=== PATIENT | female | born 1930 | race Caucasian/White ===

== ENCOUNTER 2016-10-09 16:17 | Emergency (ER) | payer MEDICARE, OTHER ==
[~2016-10-09] VITALS: Ht 160 cm; Wt 90.7 kg
[~2016-10-09 16:17] MED LIST: AFRIN 20 ML20 M1 NS; ASPIRIN ADULT L81 M2 PO; ATIVAN0.5 MG PO; CENTRUM1 TAB PO; FERROUS SULFAT325 M2 PO; FLAGYL500 M1 PO; HYDROCODONE-APA1 TA1 PO; LEVOXYL0.025 MG PO; LEVOXYL0.125 MG PO; LORATADINE 10MG10 M1 PO; LOSARTAN POTASS50 MG PO; MOBIC15 MG PO; MOTRIN600 M1 PO; OSTEO BI-FLEX1 TAB PO; OXYBUTYNIN5 MG PO; PANTOPRAZOLE SO40 MG PO; PRILOSEC20 MG PO; TOVIAZ8 MG PO; TRIAMTERENE AND1 TAB PO; TROSPIUM CHLORI20 MG PO; VESICARE5 MG PO
[2016-10-09] MEDS ORDERED: ZITHROMAX Z PA250 MG PO (17:28)
[2016-10-09] MEDS ORDERED: FLONASE 50 MCG16 GM (17:28)
[2016-10-09] MEDS ORDERED: MEDROL 4MG. DOSE4 MG PO (17:28)
--- NOTE | 2016-10-09 17:28 | Urgent Treatment Center Report ---
History of Present Issue Date/Time Seen by Provider 10/09/16 1630 Visit Reason Pt arrived:Wheelchair Presenting Problem:PT STATES SHE BEGAN TO HAVE COLD SYMPTOMS ON TUESDAY AFTERNOON. STATES CONGESTION, RUNNY NOSE, COUGH AND SINUS PRESSURE. STATES COUGH IS NONPRODUCTIVE Location if Accident: Onset of symptoms date/time:/ or onset unknown for:MEDICAL HX UNKNOWN Have you (or family members/close friends) recently traveled outside the [place]? N If Yes, where/when: Have you had exposure to infectious disease within the past month? TB? Other? Specify: Patient states that she has been not feeling well for about 4-5 days state sthat she has continued to get worse. States that she has had congestion, cough, runny nose and sinus pain and congestion states that she is a little sore under her eyes too. States that the cought is aggrivating and got worse today. Denies coughing anything up just feels like something is dripping in there and aggrivating her ALLERGIES Coded Allergies: bacitracin (I-RASH 05/17/16) neomycin (I-RASH 05/17/16) polymyxin B (I-RASH 05/17/16) solifenacin (FACE SWELLING, SOB, LEG PAIN 05/17/16) venlafaxine (UPSET STOMACH 05/17/16) Home Medications Reported Medications Loratadine (Loratadine 10MG Tablet) 10 MG PO BID TRIAMTERENE/HYDROCHLOROTHIAZID (Triamterene-Hctz 75-50 MG Tab) 1 TAB PO DAILY Losartan Potassium (Losartan 50MG) 50 MG PO DAILY Levothyroxine Sodium (Levoxyl) 0.125 MG PO DAILY Lorazepam (Ativan 0.5MG) 0.5 MG PO TID Trospium Chloride 20 MG PO BID Pantoprazole Sodium (Pantoprazole 40MG) 40 MG PO BID Ibuprofen (Motrin) 600 MG PO PRN PRN . History Medical History General CAD? No Angina: No [place]: No Hypertension? Yes Hyperlipidemia? Yes CHF? No DVT? No PE? No COPD? Yes Asthma? No Anemia? Yes GERD? Yes Gastric ulcers? No GI Bleed? No Hernia? No Thyroid Problems? Yes CVA? No Seizures? No Diabetes? No Insulin Dependent: No Insulin Pump: No Home FSBS? No Renal Insuffiency? No UTI? No Stones? No GB Disease: Yes Nephritic Syndrome? No Asplenia? No Hepatitis? No Sickle Cell Disease? No Arthritis? Yes Migraines? No Cataracts? Yes Glaucoma? No MRSA? No HIV? No TB? No Anxiety? Yes Depression? 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 Yes Additional hx: OSTEOARTHRITIS Immunization HX DT/Tetanus Unknown Flu 2011-FSN Pneumonia 1-4 YRS Surgical Hx Previous Surgery?Y THYROIDECTOMY GALLBLADDER RIZWAN CATARACT REMOVAL HYSTERECTOMY Family History Family HX Diabetes Yes CAD Yes Hypertension No Hyperlipidemia Yes Cancer No TB No Social History Smoking Hx Smoker: Never Smoker Tobacco: No Alcohol Alcohol: No Review of Systems All Other Systems Reviewed and Negative ENT nose discharge, nose congestion, throat pain. Respiratory cough Comment Coughing, sinus pain and pressure, ears feel full and over all not feeling well for the last 4-5 days. Physical Exam Vital Signs Vital Signs Date Time Temp Pulse Resp B/P Pulse O2 O2 Flow FiO2 Ox Delivery Rate 10/09 1637 97.5 93 22 148/85 97 General Appearance Over all patient appears ill, sitting in wheelchair coughing and blowing nose with greenish colored mucous Ear, Nose, Throat sinus pain/drainage, nasal congestion, Greenish colored mucous from nose. Tenderness over maxillary sinus, throat red, irritated Respiratory Status Yes: trachea midline, chest symmetrical. No: respiratory distress. Lung Sounds bilateral: lungs clear. 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 Right ear stopped up with wax, ear cleaned out with ear cruette patient tolerated well Medical Decision Making LABS/Meds/Orders Pt receiving controlled substance in ED? No Results/Orders Orders Procedure Date/time Status CHEST(2 VIEWS-NOT PORTABLE) 10/09 1644 Active XRAY/CT/US XRAY/CT/US XRAY chest XR interpretation by reviewed by me Xray Results no infiltrates, large hiatel hernia Progress IAC Progress Notes Date 10/09/16 Departure Departure Time of Disposition 1725 Disposition DC Home or Self Care(routine) Clinical Impression Primary Impression: Upper respiratory infection Qualifiers: URI type: unspecified URI Qualified Code: J06.9 - Acute upper respiratory infection, unspecified Condition STABLE Referrals Raimundo Velasco MD (Family) Patient Instructions Cough, DI for Sinusitis, Sinus Headache Additional Instructions *Follow up with family doctor * Monitor Temp. Tylenol and/or Ibuprofen as needed. ER if fever is no less than 101 despite alternating Tylenol and Ibuprofen * Encourage fluids, water, Gatorade, powerade, pedialyte if infant/toddler/or child * Warm salt water gargles for throat irritation *Warm fluids *Sore throat lozenges *Sleep elevated *humidifier or vaporizer Discharge Counseling Counseled pt/family regarding diagnosis, test results, medications/RX, home care, follow up needs Prescriptions Current Visit Scripts Azithromycin (Zithromycin (Z-COOPER) 250MG Tab) 250 MG PO DAILY #6 TAB TAKE TWO (2) TABLETS ON DAY 1, THEN ONE (1) TABLET DAY #2 THRU #5 Fluticasone Propionate (Flonase 50 Mcg Nasal [place]) 2 SPRAY NA DAILY #1 BOT Methylprednisolone (Medrol Dose [place]) 4 MG PO UD #1 COOPER TAKE DIRECTED ON PACKAGING at 9582
[2016-10-09 17:36] VITALS: BP 148/85
--- NOTE | 2016-10-09 18:18 | RADIOLOGY REPORT PS360 ---
CHEST(2 VIEWS-NOT PORTABLE) Ordering Physician: JEMAL DILLON APRN Patient Age: 86 years: Female HISTORY: COUGH/CONGESTION TECHNIQUE: Cough congestion. PA and lateral chest. FINDINGS Previous portable chest from July 2015. Also AP and lateral chest . Also CT abdomen May 17, 2016. Prominent hiatal hernia with extends into the lower left chest. It appears similar about more prominent than on May 2016. Elevation left hemidiaphragm. There is atelectasis adjacent to this large hiatal hernia and changes at the left base. These features appear similar to the CT abdomen from May 2016. The left upper lung is clear. The right lung appears similar and clear. Some mild vascular engorgement but no overt CHF. Heart upper normal in size julius and mediastinal structures similar with calcified hilar nodes of the left. The chest is rotated to the left on the frontal projection. And T-spine demonstrates mild dextroscoliosis but no compression fractures or prominent findings. Edematous changes noted T-spine. IMPRESSION: No pneumonia nor discrete acute findings either chest. Large hiatal hernia extending into the left lower hemithorax. This was seen on May 2016 but is more pronounced today with further distention here at lower left chest... There is associated atelectasis at the posterior left lung base Right chest stable.
--- OUTSIDE RECORDS SUMMARY | 2016-10-10 23:50 | External Medical Summary Rpt ---
Author Author , Organization [employer] Address Unknown Phone Unavailable Purpose Continuity of Care Document - through 2016
--- OUTSIDE RECORDS SUMMARY | 2016-10-10 23:50 | External Medical Summary Rpt ---
Author Author [employer] Organization [employer] Address Unknown Phone Unavailable Purpose Continuity of Care Document - through 2016
--- OUTSIDE RECORDS SUMMARY | 2016-10-10 23:50 | External Medical Summary Rpt ---
Demographics Preferred Language Divehi Marital Status Unknown Nondenominational Affiliation Unknown Race Unknown Ethnic Group Unknown Author Author , Organization [employer] Address Unknown Phone Unavailable Purpose Continuity of Care Document - through 2016 Immunization No patient found.
--- OUTSIDE RECORDS SUMMARY | 2016-10-10 23:50 | External Medical Summary Rpt ---
Author Author [facility] Organization [facility] Address Unknown Phone Unavailable Care Team Providers Care Head Of Insight Name Role Phone Franck CHARLES PCP [phone] Encounter [facility] [id number] Date(s): 05/26/16 - 05/26/16 [facility] [address] [place] [id number]- [phone] Discharge Diagnosis: Abdominal pain Discharge Diagnosis: Hematuria Discharge Diagnosis: Diaphragmatic hernia Discharge Disposition: OP Self Care or Home Attending Physician: NATHAN BARAHONA DO Admitting Physician: NATHAN BARAHONA DO Referring Physician: NATHAN BARAHONA DO Reason for Visit DIAPHRAGMATIC HERNIA WITHOUT OBSTRUCTION OR GANGRENE Vital Signs Most recent 1 2 3 to oldest [Reference Range]: Temperature Oral (05/26/16 Source 9:47 AM) Temperature Fahrenheit Fahrenheit Mode (05/26/16 3:04 (05/26/16 9:47 PM) AM) Temperature, 97.2 Deg F Fahrenheit (05/26/16 9:47 [96.8-99.7 AM) Deg F] Clinical 36.2 Deg C Temperature, (05/26/16 9:47 C AM) Peripheral 100 bpm (05/26/16 99 bpm (05/26/16 Pulse Rate 3:04 PM) 9:47 AM) [60-100 bpm] Heart Rate 96 bpm (05/26/16 98 bpm (05/26/16 94 bpm (05/26/16 Monitored 2:30 PM) 2:00 PM) 1:30 PM) [60-100 bpm] Respiratory 18 Breaths/Min 17 Breaths/Min 18 Breaths/Min Rate [14-20 (05/26/16 3:04 (05/26/16 2:30 (05/26/16 2:00 Breaths/Min] PM) PM) PM) Blood 143/82 mmHg 166/79 mmHg 159/89 mmHg Pressure *HI*(12/14/16 *HI*(05/26/16 *HI*(05/26/16 [90-140/60-9 3:04 PM) 2:00 PM) 1:30 PM) 0 mmHg] Mean 114 (05/26/16 112 (05/26/16 105 (05/26/16 Arterial 2:00 PM) 1:30 PM) 12:00 PM) Pressure (MAP)-BMDI Oxygen 93 % 94 % (05/26/16 Saturation *LOW*(05/26/16 9:47 AM) [94-100 %] 3:04 PM) Oxygen Room air Room air Therapy Mode (05/26/16 3:04 (05/26/16 9:47 PM) AM) Problem List No data available for this section Allergies, Adverse Reactions, Alerts Substance Reaction Severity Status bacitracin Active neomycin Active polymyxin B Active sulfate solifenacin Active Medications No data available for this section Results GENERAL CHEMISTRY Most recent 1 to oldest [Reference Range]: Sodium Level 130 mmol/L [136-146 *LOW* mmol/L] (05/26/16 10:10 AM) Potassium 4.3 mmol/L Level (05/26/16 10:10 AM) [3.5-5.1 mmol/L] Chloride 98 mmol/L Level *LOW* [102-112 (05/26/16 10:10 AM) mmol/L] Carbon 19 mmol/L Dioxide *LOW* Level [21-32 (05/26/16 10:10 AM) mmol/L] Anion Gap 17 [9-20] (05/26/16 10:10 AM) Glucose 118 mg/dL Level *HI* [74-106 (05/26/16 10:10 AM) mg/dL] Blood Urea 23 mg/dL Nitrogen *HI* [7-22 mg/dL] (05/26/16 10:10 AM) Creatinine 1.30 mg/dL Level *HI* [0.55-1.02 (05/26/16 10:10 AM) mg/dL] eGFR 47 mL/min/1.73m2 [>=60 *LOW* mL/min/1.73m (05/26/16 10:10 AM) 2] eGFR 39 mL/min/1.73m2 NonAfrican *LOW* [>=60 (05/26/16 10:10 AM) mL/min/1.73m 2] Bun/Creatini 17.7 ne (05/26/16 10:10 AM) [8.0-20.0] Calcium 9.1 mg/dL Level (05/26/16 10:10 AM) [8.5-10.1 mg/dL] Protein 7.6 Gram/dL Total (05/26/16 10:51 AM) [6.4-8.2 Gram/dL] Albumin 3.5 Gram/dL Level (05/26/16 10:51 AM) [3.4-5.0 Gram/dL] Globulin 4.1 Gram/dL [1.5-4.5 (05/26/16 10:51 AM) Gram/dL] A/G Ratio 0.9 [1.1-2.5] *LOW* (05/26/16 10:51 AM) Bilirubin 0.3 mg/dL Total (05/26/16 10:51 AM) [0.2-1.0 mg/dL] Bilirubin <0.1 mg/dL Direct (05/26/16 10:51 AM) [0.0-0.2 mg/dL] Alk Phos 72 Units/Liter [27-136 (05/26/16 10:51 AM) Units/Liter] AST [5-37 26 Units/Liter Units/Liter] (05/26/16 10:51 AM) ALT [12-78 35 Units/Liter Units/Liter] (05/26/16 10:51 AM) Lactic Acid 1.11 mmol/L POC (05/26/16 12:51 PM) [0.90-1.70 mmol/L] Lipase Level 96 Units/Liter [73-393 (05/26/16 10:51 AM) Units/Liter] HEMATOLOGY Most recent 1 to oldest [Reference Range]: WBC 7.1 K/uL [4.0-10.0 (05/26/16 10:10 AM) K/uL] RBC 3.57 Million/uL [3.93-5.22 *LOW* Million/uL] (05/26/16 10:10 AM) Hgb 11.4 g/dL [11.2-15.7 (05/26/16 10:10 AM) g/dL] Hct 33.9 % [34.1-44.9 *LOW* %] (05/26/16 10:10 AM) MCV 95.0 fL [79.0-94.8 *HI* fL] (05/26/16 10:10 AM) MCH 31.9 pg [25.6-32.2 (05/26/16 10:10 AM) pg] MCHC 33.6 Gram/dL [32.2-36.5 (05/26/16 10:10 AM) Gram/dL] Platelet 450 K/uL Count *HI* [163-369 (05/26/16 10:10 AM) K/uL] MPV 8.8 fL [9.4-12.4 *LOW* fL] (05/26/16 10:10 AM) RDW 13.4 % [11.6-14.4 (05/26/16 10:10 AM) %] Neut % 70.5 % [34.0-71.0 (05/26/16 10:10 AM) %] Neut # 4.98 K/uL [1.56-6.13 (05/26/16 10:10 AM) K/uL] Lymph % 17.4 % [19.3-53.1 *LOW* %] (05/26/16 10:10 AM) Lymph # 1.23 x10(3)/uL [1.00-3.90 (05/26/16 10:10 AM) x10(3)/uL] [place] % 9.3 % [3.0-9.0 %] *HI* (05/26/16 10:10 AM) [place] # 0.66 K/uL [0.16-1.00 (05/26/16 10:10 AM) K/uL] Eos % 1.1 % [0.0-7.0 %] (05/26/16 10:10 AM) Eos # 0.08 x10(3)/uL [0.00-0.80 (05/26/16 10:10 AM) x10(3)/uL] Baso % 0.7 % [0.0-1.5 %] (05/26/16 10:10 AM) Baso # 0.05 x10(3)/uL [0.00-0.20 (05/26/16 10:10 AM) x10(3)/uL] Slide Review No (05/26/16 10:10 AM) IG# 0.07 x10(3)/uL [0.00-0.05 *HI* x10(3)/uL] (05/26/16 10:10 AM) IG% 1.00 % [0.00-0.60 *HI* %] (05/26/16 10:10 AM) COAGULATION Most recent 1 to oldest [Reference Range]: PT [9.5-11.3 10.7 Second(s) Second(s)] (05/26/16 10:51 AM) INR 1.0 [0.0-1.1] (05/26/16 10:51 AM) PTT 26.2 Second(s) [24.5-29.5 (05/26/16 10:51 AM) Second(s)] URINALYSIS Most recent 1 to oldest [Reference Range]: Urine Type U CleanCatch (05/26/16 11:55 AM) Urine Color Yellow *NA* (05/26/16 11:55 AM) Urine Clear Appearance (05/26/16 11:55 AM) Urine 1.009 Specific (05/26/16 11:55 AM) [place] [1.005-1.030 ] Urine pH 6.0 Dipstick (05/26/16 11:55 AM) [6.0-8.0] Urine Small Leukocyte *ABN* Esterase (05/26/16 11:55 AM) [Negative] Urine Negative Nitrite (05/26/16 11:55 AM) [Negative] Urine Negative Protein (05/26/16 11:55 AM) Dipstick [Negative] Urine Negative Glucose (05/26/16 11:55 AM) Dipstick [Negative] Urine Negative Ketones (05/26/16 11:55 AM) Dipstick [Negative] Urine 0.2 EU/dL Urobilinogen (05/26/16 11:55 AM) Dipstick Urine Negative Bilirubin (05/26/16 11:55 AM) Dipstick [Negative] Urine Blood Negative Dipstick (05/26/16 11:55 AM) [Negative] Ur RBC 0-2 /HPF *ABN* (05/26/16 11:55 AM) Ur WBC 2-5 /HPF *ABN* (05/26/16 11:55 AM) Ur Bacteria 1+ *ABN* (05/26/16 11:55 AM) Ur Mucous Trace *ABN* (05/26/16 11:55 AM) Ur Amorph Trace *ABN* (05/26/16 11:55 AM) Ur 2-5 /HPF Epithelial *ABN* Cells (05/26/16 11:55 AM) Microbiology Reports TEST: Urine Culture STATUS: Order in Progress BODY SITE: SOURCE: Urine, Clean Catch COLLECTED DATE/TIME: 05/26/16 12:51 PMPRELIMINARY REPORT10,000-100,000 cfu /ml Recollect Specimen - 3 or more organisms suggests contamination Immunizations No data available for this section Procedures No data available for this section Social History No data available for this section Assessment and Plan No data available for this section Hospital Discharge Instructions Patient EducationAbdominal Pain, Adult, [id number] Hematuria, Adult Hernia
--- OUTSIDE RECORDS SUMMARY | 2016-10-10 23:50 | External Medical Summary Rpt ---
Author Author [facility], [facility] Organization [employer] Address Unknown Phone Unavailable
--- OUTSIDE RECORDS SUMMARY | 2016-10-10 23:50 | External Medical Summary Rpt ---
Demographics Preferred Language Macedonian Marital Status Unknown Gnosticist Affiliation Unknown Race Unknown Ethnic Group Unknown Author Author , Organization [employer] Address Unknown Phone Unavailable Purpose Continuity of Care Document - through 2016 Immunization No patient found.
--- OUTSIDE RECORDS SUMMARY | 2016-10-10 23:50 | External Medical Summary Rpt ---
Author Author [facility] Organization [facility] Address Unknown Phone Unavailable Care Team Providers Care Dental Therapist Name Role Phone Franck CHARLES PCP [phone] Encounter [facility] [id number] Date(s): 05/26/16 - 05/26/16 [facility] [address] [place] [id number]- Discharge Diagnosis: Abdominal pain Discharge Diagnosis: Hematuria [...] 1.23 x10(3)/uL [1.00-3.90 (05/26/16 10:10 AM) x10(3)/uL] [place] % 9.3 % [3.0-9.0 %] *HI* (05/26/16 10:10 AM) [place] # 0.66 K/uL [0.16-1.00 (05/26/16 10:10 AM) [...] AM) Urine 1.009 Specific (05/26/16 11:55 AM) Model [1.005-1.030 ] Urine pH 6.0 Dipstick (05/26/16 [...] Hospital Discharge Instructions Patient EducationAbdominal Pain, Adult, [id number] Hematuria, Adult Hernia
== END 2016-10-09 17:36 | disposition home or self-care (01) ==
LOC: UTC 16:17
DX: J06.9 Acute upper respiratory infection, unspecified (principal); I10 Essential (primary) hypertension; F41.9 Anxiety disorder, unspecified

== ENCOUNTER 2017-05-13 08:54 | Day surgery (SDC) | payer MEDICARE, OTHER ==
[~2017-05-13] VITALS: Ht 160 cm; Wt 90.7 kg
[~2017-05-13 08:54] MED LIST changes: +FLONASE 50 MCG16 GM; +MEDROL 4MG. DOSE4 MG PO; +MYRBETRIQ50 MG PO; +ZITHROMAX Z PA250 MG PO
[2017-05-13 09:14] VITALS: BP 138/81
[2017-05-13 09:28] VITALS: BP 138/81
[2017-05-13 09:29] VITALS: BP 138/81
--- NOTE | 2017-05-13 09:37 | Procedure Note ---
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 Lumbar spondylosis. Post-procedure diagnosis: Same. Indications for procedure: Very pleasant 87-year-old white female that has had a long-standing history of low back pain that she describes as constant, dull, aching. Also, bilateral hip pain. She did not respond favorably with lumbar epidural steroid injection L4-5 level. She describes her low back pain is axial in nature. Kemps test positive bilateral lumbar spine. Patient presents to procedure area for medial branch block/facet blocks at L3-4, L4-5, L5-S1 bilaterally. Procedure detail: Informed consent was obtained and the risk and benefits of the procedure was explained to the patient. Patient was taken to the procedure room where noninvasive monitors were placed, including noninvasive blood pressure cuff as well as pulse oximeter. The area over the lumbar spine was cleansed using chlorhexidine as a cleansing solution. I anesthetized the skin and subcutaneous tissues with 1% Lidocaine. I placed 22-gauge spinal needles into the facet joint / medial branches of [L3-L4, L4-L5, and L5-S1] bilaterally. Needle placement was confirmed with fluoroscopy. After confirmation of needle placement, each site was injected with 1 mL of 1% lidocaine and 0.25 % Marcaine and 10 mg of Depo- Medrol. A total of 80 mg of depo medrol was used for bilateral medial branch blocks of [L3-L4, L4-L5, and L5-S1] bilaterally. Patient tolerated the procedure without difficulty. There were no complications. Plan and disposition: Patient was evaluated 10 minutes post procedure. She is not complaining of any lumbar back pain in flexion, extension, LEFT or RIGHT rotation. She'll return to see us in the pain clinic for further evaluation. at 0936
[2017-05-13 10:53] VITALS: BP 150/79
== END 2017-05-13 09:46 | disposition home or self-care (01) ==
LOC: PM 08:54
PROC: 3E0T3BZ Introduction of Anesthetic Agent into Peripheral Nerves and Plexi, Percutaneous Approach (ICD-10-PCS; principal; 2017-05-13)
PROC: 3E0T33Z Introduction of Anti-inflammatory into Peripheral Nerves and Plexi, Percutaneous Approach (ICD-10-PCS; 2017-05-13)
PROC: BR161ZZ Fluoroscopy of Lumbar Facet Joint(s) using Low Osmolar Contrast (ICD-10-PCS; 2017-05-13)
DX: M51.36 Other intervertebral disc degeneration, lumbar region (principal); M12.88 Other specific arthropathies, not elsewhere classified, other specified site; M47.896 Other spondylosis, lumbar region
CPT/HCPCS: J1040